=== PATIENT | female | born 1950 | race Caucasian/White ===

== ENCOUNTER 2017-02-19 01:33 | Emergency (ER) | payer MEDICARE ==
[2017-02-19] MEDS ORDERED: ACETAMINOPHEN 325 MG TABLET (FP) PO ONE (02:19)
--- NOTE | 2017-02-19 02:19 | PDOC ---
History of Present Illness - General Exam Limitations: No Limitations - History of Present Illness Initial Comments: 02/19/17 02:28 66 year old female with PMHx of arthritis, HLD, GERD, diverticulosis, liver disease, hypothyroidism, Sjogrens syndrome, and cholecystectomy who presents to the emergency department complaining of 2 days of generalized malaise, body aches, nonproductive cough, and posttussive emesis. She reports that she has a headache from the incessant coughing. The patient also states that she felt warm prior to arrival, but did not check her temperature. Denies abdominal pain , diarrhea, dysuria, hematuria, and any other urinary complaints. Denies sick contact. Denies recent travel. Denies chest pain, SOB. Allergies: Penicillin PCP: Dr. Ramos <Mariza Nickerson - Last Filed: 02/19/17 02:28> - General History Source: Patient <Og Cristina - Last Filed: 02/19/17 04:33> - General Stated Complaint: FEVER/VOMITING Time Seen by Provider: 02/19/17 02:09 Past History <Mariza Nickerson - Last Filed: 02/19/17 02:28> - Past Medical History Anemia: No Asthma: No Cancer: No Cardiac Disorders: No CVA: No COPD: No CHF: No Dementia: No Diabetes: No GI Disorders: Yes (GERD, CONSTIPATION, COLON POLYP; DIVERTICULOSIS) Disorders: No HTN: No Hypercholesterolemia: Yes Liver Disease: Yes (FATTY) Seizures: No Thyroid Disease: Yes (hypothyroid) - Surgical History Cholecystectomy: Yes (GALLSTONES) - Suicide/Smoking/Psychosocial Hx Smoking Status: No Smoking History: Never smoked Have you smoked in the past 12 months: No Number of Cigarettes Smoked Daily: 0 Hx Alcohol Use: No Drug/Substance Use Hx: No Substance Use Type: None <Og Cristina - Last Filed: 02/19/17 04:33> - Past Medical History Allergies/Adverse Reactions: Allergies Allergy/AdvReac Type Severity Reaction Status Date / Time Penicillins Allergy Verified 02/19/17 02:27 Home Medications: Ambulatory Orders Levothyroxine [Synthroid -] 50 mcg PO DAILY 12/16/13 Methotrexate [Mexate -] 2.5 mg PO Q7D 12/16/13 Ranitidine [Zantac -] 150 mg PO BID PRN 09/14/14 Calcium Carbonate/Vitamin D3 [Calcium + Vitamin D Tablet] 1 each PO BID Glucosamine HCl/Chondro Nicholson A [Glucosamine Chondroitin Cap] 1 each PO DAILY 10/27 Multivitamins [Tab-A-Vit -] 1 tab PO DAILY 10/27/14 Omeprazole [Prilosec (RX)] 40 mg PO DAILY 10/27/14 Vitamin E 400 unit PO DAILY 10/27/14 Ciprofloxacin HCl 500 mg PO BID #20 tablet 01/09/15 Metronidazole [Flagyl -] 500 mg PO TID #30 tablet 01/09/15 Oxycodone HCl/Acetaminophen [Percocet 5/325 -] 1 tab PO Q6H PRN #12 tablet 01/09 Azithromycin [Zithromax -] 250 mg PO UTDICT #6 tab 02/19/17 Review of Systems - Review of Systems Able to Perform ROS?: Yes Comments:: 02/19/17 02:28 CONSTITUTIONAL: Present: body aches, generalized malaise Absent: fever, no chills, no fatigue EYES: Absent: visual changes ENT: Absent: ear pain, no sore throat CARDIOVASCULAR: Absent: chest pain, no palpitations RESPIRATORY: +nonproductive cough, posttussive emesis Absent: no SOB GI: Absent: abdominal pain, no nausea, no constipation, no diarrhea GENITOURINARY: Absent: dysuria, no frequency, no hematuria MUSCULOSKELETAL: Absent: back pain, no arthralgia, no myalgia SKIN: Absent: rash <Mariza Nickerson - Last Filed: 02/19/17 02:28> *Physical Exam - Physical Exam Comments: 02/19/17 02:29 GENERAL: Well-appearing, well-nourished. In moderate distress HEENT: Normocephalic, atraumatic. PERRL, EOM intact.+dry mucous membranes CARDIOVASCULAR: Normal S1, S2. Regular rate and rhythm. PULMONARY: +coarse breath sounds bilaterally. ABDOMEN: Soft, non-distended, non-tender. EXTREMITIES: Normal ROM in all four extremities. No gross deformities. SKIN: Warm, dry. No rash NEUROLOGICAL: No focal neurological deficits. <Mraiza Nickerson - Last Filed: 02/19/17 02:28> ED Treatment Course - LABORATORY CBC & Chemistry Diagram: 02/19/17 03:15 02/19/17 03:15 <Og Cristina - Last Filed: 02/19/17 04:33> Medical Decision Making - Medical Decision Making 02/19/17 04:32 Dr. Cristina: The scribe's documentation has been prepared under my direction and personally reviewed by me in its entirery. I confirm that the note above accurately reflects all work, treatment, procedures, and medical decision making performed by me. Patient now feels better. Temp 99F. Pt to be discharged. Rx Zithromax, Ibuprofen. <Og Cristina - Last Filed: 02/19/17 04:33> *DC/Admit/Observation/Transfer - Attestations Scribe Attestion: 02/19/17 02:29 Documentation prepared by MEENA Garcia, acting as medical psychotherapist for Og Cristina MD. <Mariza Nickerson - Last Filed: 02/19/17 02:28> - Discharge Dispostion Admit: No <Og Cristina - Last Filed: 02/19/17 04:33> Diagnosis at time of Disposition: Bronchitis - Discharge Dispostion Disposition: HOME Condition at time of disposition: Stable - Prescriptions Prescriptions: Azithromycin [Zithromax -] 250 mg PO UTDICT #6 tab - Referrals Referrals: Xiomy Franklin MD [Primary Care Provider] - - Patient Instructions Printed Discharge Instructions: DI for Acute Bronchitis Print Language: TOGOLESE - Post Discharge Activity
[2017-02-19 02:31] VITALS: BP 161/80; BMI 30.2
[2017-02-19] MEDS ORDERED: ACETAMINOPHEN 325 MG TABLET (FP) ONE (02:32)
[2017-02-19] MEDS ORDERED: SODIUM CHLORIDE 1,000 ML IV STA (03:00)
[2017-02-19 03:29] LABS: BASOPHIL 0.5 % (0-2.0); EOSINOPHIL 0.6 % (0-4.5); MCH 30.8 pg (25.7-33.7); MCHC 34.9 g/dl (32.0-36.0); MEAN CELL VOLUME 88.4 fl (80-96); MEAN PLT VOLUME 7.9 fl (7.5-11.1); NEUTROPHILS 80.7 % (42.8-82.8); PLATELET COUNT 257 K/MM3 (134-434); RDW 14.4 % (11.6-15.6); WHITE BLOOD COUNT 9.9 K/mm3 (4.0-10.0)
[2017-02-19 03:55] LABS: ALBUMIN 3.9 g/dl (3.4-5.0); ANION GAP 10 (8-16); BILIRUBIN,TOTAL 0.6 mg/dL (0.2-1.0); CALCIUM 8.8 mg/dL (8.5-10.1); CO2 24 mmol/L (21-32); CREATININE 0.7 mg/dL (0.55-1.02); GLUCOSE,RANDOM 135 mg/dL (74-106); SGOT/AST 29 U/L (15-37); SGPT/ALT 49 U/L (12-78); TOT PROT 7.8 g/dl (6.4-8.2)
[2017-02-19 03:56] LABS: ALK PHOS 91 U/L (45-117)
[2017-02-19] MEDS ORDERED: AZITHROMYCIN 250 MG TABLET PO STA (04:04)
[2017-02-19] MEDS ORDERED: AZITHROMYCIN 250 MG TABLET ONE (04:29)
[2017-02-19 04:50] VITALS: PULSE 96
[2017-02-19 04:51] VITALS: TEMP 99.4
--- NOTE | 2017-02-21 17:16 | PDOC ---
Patient Follow-up (Call Back) - Post ED Follow - Up Condition at time of discharge: Stable Disposition at time of original discharge: HOME Reason for Call Back: Abnwl. Microbiology ((+) blood culture, 1 aerobic bottle grew gram positive cocci in clusters. Most likely a contaminant. Tried calling pt. on her land line and cell with no answer. Left message on cell. Waiting call back.)
--- NOTE | 2017-02-22 07:17 | PDOC ---
Patient Follow-up (Call Back) - Post ED Follow - Up Condition at time of discharge: Stable Disposition at time of original discharge: HOME Reason for Call Back: Abnwl. Microbiology (Patient on [facility] for bronchitis with positive blood culture on preliminary read, no sensitivities. Called patient and left message to call back)
== END 2017-02-19 04:45 | disposition home or self-care (01) ==
LOC: JER 01:33
PROC: 3E0337Z Introduction of Electrolytic and Water Balance Substance into Peripheral Vein, Percutaneous Approach (ICD-10-PCS; principal; 2017-02-19)
DX: J40 Bronchitis, not specified as acute or chronic (principal); E78.00 Pure hypercholesterolemia, unspecified; K21.9 Gastro-esophageal reflux disease without esophagitis; M12.9 Arthropathy, unspecified; E03.9 Hypothyroidism, unspecified; M35.00 Sjogren syndrome, unspecified; Z90.49 Acquired absence of other specified parts of digestive tract
CPT/HCPCS: 36415; 71020-TC; 80053; 85025; 87040; 99283-25

== ENCOUNTER 2018-11-28 | Emergency (ER) | payer OTHER | END 2018-11-28 05:33 | disposition home or self-care (01) | LOC: JER ==

== ENCOUNTER 2018-12-30 11:21 | Emergency (ER) | payer OTHER ==
[2018-12-30 11:28] VITALS: BP 152/75; PULSE 74; TEMP 98.4; BMI 26.1
--- NOTE | 2018-12-30 12:08 | PDOC ---
History of Present Illness - General Chief Complaint: Pain, Acute Stated Complaint: RT KNEE PAIN Time Seen by Provider: 12/30/18 11:32 History Source: Patient Exam Limitations: No Limitations - History of Present Illness Initial Comments: 12/30/18 12:34 Patient is here with complaints of right knee pain. States [address] Metz, gave her a steroid injection for pain management for chronic pain from rheumatoid arthritis. Patient is taking multiple NSAIDs, and methotrexate for her rheumatoid arthritis but states has progressive worsening. Dr. Metz is out of town and was instructed to come to emergency department for evaluation. Denies fever, denies any redness, no purulent drainage. But states pain has progressively worsened. Occurred: reports: just prior to arrival Associated Symptoms (Fall): denies symptoms Past History - Past Medical History Allergies/Adverse Reactions: Allergies Allergy/AdvReac Type Severity Reaction Status Date / Time Penicillins Allergy Verified 02/19/17 02:27 Home Medications: Ambulatory Orders Levothyroxine [Synthroid -] 50 mcg PO DAILY 12/16/13 Methotrexate [Mexate -] 2.5 mg PO Q7D 12/16/13 Ranitidine [Zantac -] 150 mg PO BID PRN 09/14/14 Calcium Carbonate/Vitamin D3 [Calcium + Vitamin D Tablet] 1 each PO BID Glucosamine HCl/Chondro Nicholson A [Glucosamine Chondroitin Cap] 1 each PO DAILY 10/27 Multivitamins [Tab-A-Vit -] 1 tab PO DAILY 10/27/14 Omeprazole [Prilosec (RX)] 40 mg PO DAILY 10/27/14 Vitamin E 400 unit PO DAILY 10/27/14 Oxycodone HCl/Acetaminophen [Percocet 5/325 -] 1 tab PO Q6H PRN #12 tablet 01/09 Azithromycin [Zithromax -] 250 mg PO UTDICT #6 tab 02/19/17 Levofloxacin [Levaquin] 750 mg PO DAILY #7 tablet 12/02/18 Clindamycin [Cleocin -] 150 mg PO Q8H #21 capsule 12/30/18 Oxycodone HCl/Acetaminophen [Percocet 5-325 mg Tablet -] 1 - 2 tab PO Q4H PRN # 7 tablet MDD 4 12/30/18 Anemia: No Asthma: No Cancer: No Cardiac Disorders: No CVA: No COPD: No CHF: No Dementia: No Diabetes: No GI Disorders: Yes (GERD, CONSTIPATION, COLON POLYP; DIVERTICULOSIS) Disorders: No HTN: No Hypercholesterolemia: Yes Liver Disease: Yes (FATTY) Seizures: No Thyroid Disease: Yes (hypothyroid) - Surgical History Cholecystectomy: Yes (G[facility]ONES) - Immunization History Immunization Up to Date: Yes - Psycho Social/Smoking Cessation Hx Smoking Status: No Smoking History: Never smoked Have you smoked in the past 12 months: No Number of Cigarettes Smoked Daily: 0 Information on smoking cessation initiated: No Hx Alcohol Use: No Drug/Substance Use Hx: No Substance Use Type: None Review of Systems - Review of Systems Able to Perform ROS?: Yes Is the patient limited Yoruba proficient: Yes Constitutional: Yes: See HPI. No: Symptoms Reported, Fever, Malaise HEENTM: No: Symptoms Reported Respiratory: No: Symptoms reported ABD/GI: No: Symptoms Reported Musculoskeletal: Yes: Symptoms Reported Integumentary: Yes: See HPI. No: Symptoms Reported, Bruising, Erythema *Physical Exam - Vital Signs Last Vital Signs Temp Pulse Resp BP Pulse Ox 98.4 F 74 16 152/75 99 12/30/18 11:26 12/30/18 11:26 12/30/18 11:26 12/30/18 11:26 12/30/18 11:26 - Physical Exam General Appearance: Yes: Nourished, Appropriately Dressed, Apparent Distress, Mild Distress HEENT: positive: ABELARDO, Normal ENT Inspection, Normal Voice, TMs Normal, Pharynx Normal Neck: positive: Supple. negative: Tender Respiratory/Chest: positive: Lungs Clear Musculoskeletal: positive: Decreased Range of Motion (Swollen, with ballottement to superior and inferior patella. Patella is mobile but is painful to move. Has no true ligamentous pain but mild tenderness to posterior fossa. Neurovascular intact distal to the knee) Extremity: positive: Normal Capillary Refill, Other (Limited range of motion secondary to tenderness and pain) Integumentary: positive: Normal Color. negative: Erythema Neurologic: positive: wheel grinder II-XII NML intact, Fully Oriented, Alert ED Treatment Course - RADIOLOGY Radiology Studies Ordered: Category Date Time Status KNEE 3 POS-RIGHT [RAD] Stat Radiology 12/30/18 11:59 Ordered ED Progress Note - Progress Note Progress Note: 12/30/18 15:52 X-ray negative for fractures or dislocations, no bone deformity or evidence of osteo-. No foreign bodies noted however noted DJD throughout joint. Will start on clindamycin to ensure no joint cellulitis and have follow-up on Thursday with Dr. Metz's office. Given number 7 tablets of Percocet 12/30/18 15:55 Discharge - Discharge Information Problems reviewed: Yes Clinical Impression/Diagnosis: Knee pain, right Qualifiers: Chronicity: chronic Qualified Code(s): M25.561 - Pain in right knee Condition: Stable Disposition: HOME - Admission No - Additional Discharge Information Prescriptions: Clindamycin [Cleocin -] 150 mg PO Q8H #21 capsule Oxycodone HCl/Acetaminophen [Percocet 5-325 mg Tablet -] 1 - 2 tab PO Q4H PRN # 7 tablet MDD 4 PRN Reason: Pain - Follow up/Referral Referrals: Aurora Pacheco MD [Primary Care Provider] - - Patient Discharge Instructions Patient Printed Discharge Instructions: DI for Knee Pain Additional Instructions: Rest, ice to area on and off for 15 minutes 4-6 times a day Avoid heavy lifting or exercise until pain and swelling is resolved or until further directed Keep area highly elevated to reduce swelling Use splints/Bryon wrap as directed Followup with orthopedist in one to 2 days if not improving, if significantly improved may wait one week for followup with orthopedist May use ibuprofen every 6 hours as needed for pain May use 1 tablet of Percocet as needed for severe pain, understanding will make dizzy and sleepy - Post Discharge Activity Work/Back to School Note: Back to Work
== END 2018-12-30 13:04 | disposition home or self-care (01) ==
LOC: JERFT 11:21
DX: M25.561 Pain in right knee (principal); G89.29 Other chronic pain; M06.9 Rheumatoid arthritis, unspecified; K21.9 Gastro-esophageal reflux disease without esophagitis; K59.00 Constipation, unspecified; K57.92 Diverticulitis of intestine, part unspecified, without perforation or abscess without bleeding; E78.00 Pure hypercholesterolemia, unspecified; E03.9 Hypothyroidism, unspecified; Z88.0 Allergy status to penicillin
CPT/HCPCS: 73562-TC-RT-FY; 99281-25

== ENCOUNTER 2019-10-08 10:40 | Emergency (ER) | payer OTHER ==
[2019-10-08 11:00] VITALS: TEMP 98.8; BMI 28.0
--- NOTE | 2019-10-08 11:37 | PDOC ---
History of Present Illness - General Chief Complaint: Abnormal Lab Results (Outside) Stated Complaint: LOW SODIUM Time Seen by Provider: 10/08/19 11:16 History Source: Patient Exam Limitations: No Limitations - History of Present Illness Initial Comments: 10/08/19 11:35 68-year-old female history of hypertension, arthritis, gastritis, hypothyroidism sent to ED by PMD for low sodium. Patient states she has been feeling tired x2 days with intermittent paresthesias. Denies fever, chills, cough, chest pain, shortness of breath, abdominal pain, nausea, vomiting, diarrhea or urinary symptoms. Denies sick contacts or recent travel. ROS: as above PE: GENERAL: well-appearing, NAD HEAD: NCAT EYES: Pupils equal, round and reactive to light, sclera anicteric, conjunctiva clear ENT: pharynx: no erythema, no exudate, uvula midline NECK: supple CHEST: nontender RESP: clear, no w/r/r CARDIO: rrr, no m/g/r ABD: +BS, soft, nontender, non distended BACK: no midline spinal ttp, no CVAT EXTREMITIES: Normal range of motion, no edema NEUROLOGICAL: Normal speech, normal gait SKIN: Warm, Dry Is this a multiple visit Asthma Patient?: No Past History - Medical History Allergies/Adverse Reactions: Allergies Allergy/AdvReac Type Severity Reaction Status Date / Time Penicillins Allergy Verified 10/08/19 12:26 Home Medications: Ambulatory Orders Levothyroxine [Synthroid -] 50 mcg PO DAILY 12/16/13 Multivitamins [Tab-A-Vit -] 1 tab PO DAILY 10/27/14 Omeprazole [Prilosec (RX)] 40 mg PO DAILY 10/27/14 Famotidine [Pepcid] 40 mg PO HS 10/08/19 Lisinopril/Hydrochlorothiazide [Lisinopril-Hctz 20-25 mg Tab] 1 each PO DAILY 10/08/19 Anemia: No Asthma: No Cancer: No Cardiac Disorders: No CVA: No COPD: No CHF: No Dementia: No Diabetes: No GI Disorders: Yes (GERD, CONSTIPATION, COLON POLYP; DIVERTICULOSIS) Disorders: No HTN: No Hypercholesterolemia: Yes Liver Disease: Yes (FATTY) Seizures: No Thyroid Disease: Yes (hypothyroid) - Surgical History Cholecystectomy: Yes (G[facility]ONES) - Immunization History Immunization Up to Date: Yes - Psycho-Social/Smoking History Smoking Status: No Smoking History: Never smoked Have you smoked in the past 12 months: No Number of Cigarettes Smoked Daily: 0 - Substance Abuse Hx (Audit-C & DAST Scrn) How often the patient has a drink containing alcohol: Never Score: In Men: 4 or > Positive; In Women: 3 or > Positive: 0 Screen Result (Pos requires Nsg. Audit-10AR): Negative *Physical Exam - Vital Signs Last Vital Signs Temp Pulse Resp BP Pulse Ox 98.8 F 84 16 147/82 100 10/08/19 10:48 10/08/19 10:48 10/08/19 10:48 10/08/19 10:48 10/08/19 10:48 ED Treatment Course - LABORATORY CBC & Chemistry Diagram: 10/08/19 11:30 10/08/19 14:09 Medical Decision Making - Medical Decision Making 10/08/19 11:36 68-year-old female history of hypertension, arthritis, gastritis, hypothyroidism sent to ED by PMD for low sodium. Patient states she has been feeling tired x2 days with intermittent paresthesias. Denies fever, chills, cough, chest pain, shortness of breath, abdominal pain, nausea, vomiting, diarrhea or urinary symptoms. Denies sick contacts or recent travel. Repeat lab Reassess 10/08/19 16:42 I spoke with [employer] Yocasta Inman who evaluated patient yesterday she confirmed Na 127 Na today 129, after 2L NS Na 134 Informed patient of these results she agrees with plan for discharge home She has scheduled follow-up appointment with PMD on Thursday, October 09 Understands return precautions Discharge - Discharge Information Problems reviewed: Yes Clinical Impression/Diagnosis: Hyponatremia Condition: Stable Disposition: HOME - Admission No - Follow up/Referral Referrals: Jose Alfredo Montoya II, DO [Primary Care Provider] - - Patient Discharge Instructions Additional Instructions: Keep your appointment scheduled with your doctor in 2 days Return to ED if you develop weakness, numbness, tingling, chest pain, shortness of breath, or any concerning symptoms - Post Discharge Activity
[2019-10-08 11:43] LABS: BASO % 0.4 % (0-2.0); EOS % 0.7 % (0-4.5); HEMATOCRIT 39.2 % (32.4-45.2); HEMOGLOBIN 13.4 GM/dL (10.7-15.3); LYMPH % 29.4 % (8-40); MCH 30.5 pg (25.7-33.7); MCHC 34.2 g/dl (32.0-36.0); MEAN CELL VOLUME 89.4 fl (80-96); MEAN PLT VOLUME 8.5 fl (7.5-11.1); MONO % 10.8 % (3.8-10.2); NEUT % 58.7 % (42.8-82.8); PLATELET COUNT 377 K/MM3 (134-434); RBC 4.39 M/mm3 (3.60-5.2); RDW 14.8 % (11.6-15.6); WHITE BLOOD COUNT 7.6 K/mm3 (4.0-10.0)
[2019-10-08 12:17] LABS: ALBUMIN 4.1 g/dl (3.4-5.0); BILIRUBIN,TOTAL 0.9 mg/dL (0.2-1); BLOOD UREA NITROGEN 10.6 mg/dL (7-18); CALCIUM 9.4 mg/dL (8.5-10.1); CREATININE 0.6 mg/dL (0.55-1.3); MAGNESIUM 2.3 mg/dL (1.8-2.4); TOT PROT 8.3 g/dl (6.4-8.2)
[2019-10-08 12:37] LABS: EPI CELLS >36 /uL (0-25.1); HYALINE CASTS 3 /uL (0-3.1); URINE APPEARANCE CLOUDY; URINE BACTERIA 25 /uL (0-1359); URINE BILIRUBIN NEGATIVE (NEGATIVE); URINE COLOR YELLOW; URINE GLUCOSE (UA) NEGATIVE (NEGATIVE); URINE KETONE NEGATIVE (NEGATIVE); URINE LEUK ESTERASE 1+ (NEGATIVE); URINE NITRITE NEGATIVE (NEGATIVE); URINE PROTEIN NEGATIVE (NEGATIVE); URINE RBC 55 /uL (0-23.9); URINE UROBILINOGEN 0.2 mg/dL (0.2-1.0); URINE WBC 18 /uL (0-25.8)
[2019-10-08] MEDS ORDERED: SODIUM CHLORIDE 0.9% 500 ML INFUS.BAG IV ONE ×2 (12:52→12:53)
[2019-10-08 15:02] VITALS: BP 135/80; PULSE 81
[2019-10-08 15:46] LABS: BLOOD UREA NITROGEN 8.9 mg/dL (7-18); CALCIUM 8.8 mg/dL (8.5-10.1); CREATININE 0.5 mg/dL (0.55-1.3); POTASSIUM 4.5 mmol/L (3.5-5.1)
--- NOTE | 2019-10-09 17:28 | EKG ---
Test Reason : Blood Pressure : / mmHG Vent. Rate : 071 BPM Atrial Rate : 071 BPM P-R Int : 144 ms QRS Dur : 086 ms QT Int : 408 ms P-R-T Axes : 063 056 020 degrees QTc Int : 443 ms NORMAL SINUS RHYTHM NORMAL ECG WHEN COMPARED WITH ECG OF 10-AUG-2008 07:53, NO SIGNIFICANT CHANGE WAS FOUND Confirmed by MD Womack Edward ([id number]) on 10/09/2019 5:27:47 PM Referred By: Confirmed By:Alberto Womack MD
== END 2019-10-08 16:55 | disposition home or self-care (01) ==
LOC: JER 10:40
DX: E87.1 Hypo-osmolality and hyponatremia (principal)
CPT/HCPCS: 36415; 80048; 80053; 81003; 83735; 85025; 93005; 93010; 99284-25

== ENCOUNTER 2020-10-19 13:19 | Inpatient (IN) | payer OTHER ==
[2020-10-19 16:14] LABS: BASO % 0.7 % (0-2.0); EOS % 0.6 % (0-4.5); HEMATOCRIT 37.8 % (32.4-45.2); HEMOGLOBIN 13.2 GM/dL (10.7-15.3); LYMPH % 27.8 % (8-40); MCH 30.1 pg (25.7-33.7); MEAN CELL VOLUME 85.9 fl (80-96); MEAN PLT VOLUME 7.8 fl (7.5-11.1); MONO % 9.9 % (3.8-10.2); PLATELET COUNT 398 10^3/uL (134-434); RDW 13.5 % (11.6-15.6); WHITE BLOOD COUNT 7.8 K/mm3 (4.0-10.0)
[2020-10-19 16:37] LABS: BLOOD UREA NITROGEN 16.2 mg/dL (7-18); CALCIUM 8.8 mg/dL (8.5-10.1)
[2020-10-19 16:38] LABS: ALBUMIN 4.1 g/dl (3.4-5.0)
[2020-10-19 16:41] LABS: CREATININE 0.7 mg/dL (0.55-1.3)
[2020-10-19 16:42] LABS: BILIRUBIN,TOTAL 0.4 mg/dL (0.2-1); PH,URINE 6.5 (5.0-8.0); TOT PROT 8.4 g/dl (6.4-8.2); URINE APPEARANCE CLEAR; URINE BILIRUBIN NEGATIVE (NEGATIVE); URINE COLOR YELLOW; URINE GLUCOSE (UA) NEGATIVE (NEGATIVE); URINE KETONE NEGATIVE (NEGATIVE); URINE LEUK ESTERASE NEGATIVE (NEGATIVE); URINE NITRITE NEGATIVE (NEGATIVE); URINE PROTEIN NEGATIVE (NEGATIVE); URINE UROBILINOGEN 0.2 mg/dL (0.2-1.0)
[2020-10-19] MEDS ORDERED: SODIUM CHLORIDE 1,000 ML IV SCH ×2 (17:30→22:10)
[2020-10-19 21:01] LABS: BLOOD UREA NITROGEN 13.2 mg/dL (7-18); CALCIUM 8.6 mg/dL (8.5-10.1)
[2020-10-19 21:04] LABS: CREATININE 0.6 mg/dL (0.55-1.3)
[2020-10-20 05:13] VITALS: BMI 27.0
[2020-10-20] MEDS ORDERED: LEVOTHYROXINE NA 50 MCG TABLET (FP) PO SCH ×2 (07:00→10:00)
[2020-10-20 10:00] LABS: HEMATOCRIT 34.7 % (32.4-45.2); HEMOGLOBIN 12.1 GM/dL (10.7-15.3); MCH 30.2 pg (25.7-33.7); MCHC 34.8 g/dl (32.0-36.0); MEAN PLT VOLUME 7.4 fl (7.5-11.1); PLATELET COUNT 377 10^3/uL (134-434); RBC 3.99 M/mm3 (3.60-5.2); RDW 13.6 % (11.6-15.6)
[2020-10-20] MEDS ORDERED: PATIENT'S OWN MEDICATION (NON-FORMULARY) (Meloxicam [Mobic] 15 MG Tablet) PO SCH (10:00)
[2020-10-20] MEDS ORDERED: LISINOPRIL 20 MG TABLET PO SCH (10:00)
[2020-10-20] MEDS ORDERED: FOLIC ACID 1 MG TABLET (FP) PO SCH (10:00)
[2020-10-20 10:27] LABS: BLOOD UREA NITROGEN 12.1 mg/dL (7-18); CALCIUM 8.5 mg/dL (8.5-10.1); MAGNESIUM 2.2 mg/dL (1.8-2.4)
[2020-10-20 10:31] LABS: CREATININE 0.6 mg/dL (0.55-1.3); PHOSPHOROUS 3.3 mg/dL (2.5-4.9)
[2020-10-20 17:32] VITALS: BP 130/70; PULSE 74; TEMP 98.2
== END 2020-10-20 18:55 | disposition home or self-care (01) | DRG 641 ==
LOC: JER 13:19 → JERBED 19:58 → OBSVTOIN 21:51 → J6S 10-20 04:17
PROVIDERS: ADMIT Internal Medicine; ATTEND Internal Medicine
DX: E87.1 Hypo-osmolality and hyponatremia (principal); I10 Essential (primary) hypertension; M32.9 Systemic lupus erythematosus, unspecified; E03.9 Hypothyroidism, unspecified; K21.9 Gastro-esophageal reflux disease without esophagitis; M06.9 Rheumatoid arthritis, unspecified; T50.2X5A Adverse effect of carbonic-anhydrase inhibitors, benzothiadiazides and other diuretics, initial encounter
CPT/HCPCS: 36415; 80048; 80053; 81003; 83735; 83930; 84100; 84443; 85025; 85027; 93005; 93010; 99285-25; C9803; G0378; U0003; U0005

== ENCOUNTER 2022-09-03 04:42 | Day surgery (SDC) | payer OTHER ==
[2022-09-02 14:14] VITALS: BMI 29.4
[~2022-09-03 04:42] MED LIST: ACETAMINOPHEN 325 MG TABLET (FP) PO PRN
[2022-09-03] MEDS ORDERED: POVIDONE-IODINE 5% OPHTHALMIC PREP 30 ML SOLUTION ONE (07:27)
[2022-09-03] MEDS ORDERED: LIDOCAINE HCL/PF 1% SDV 5ML VIAL ONE (07:27)
[2022-09-03] MEDS ORDERED: TETRACAINE 0.5% OPHTH SOLN 2 ML BOTTLE ONE (07:27)
[2022-09-03] MEDS ORDERED: PHENYLEPHRINE 2.5% OPTHALMIC DROP 2ML BOTTLE ONE (07:52)
[2022-09-03] MEDS ORDERED: KETOROLAC TROMETHAMINE 0.5% EYE DROP 1 DROP DROPS ONE (07:53)
[2022-09-03] MEDS ORDERED: CYCLOPENTOLATE HCL 1% OPHTH SOLN 2 ML BOTTLE ONE (07:53)
[2022-09-03] MEDS ORDERED: TROPICAMIDE 1% OPHTH SOLN 15 ML BOTTLE ONE (07:53)
[2022-09-03] MEDS ORDERED: OFLOXACIN 0.3% OPHTHALMIC SOLUTION 5 ML BOTTLE ONE (07:53)
[2022-09-03 08:10] VITALS: RESP 20
[2022-09-03] MEDS: TROPICAMIDE 1% OPHTH SOLN 15 ML BOTTLE OP SCH ×3 (08:10→08:24)
[2022-09-03] MEDS: PHENYLEPHRINE 2.5% OPHTH SOLN 15 ML BOTTLE OP SCH ×3 (08:10→08:24)
[2022-09-03] MEDS: KETOROLAC TROMETHAMINE 0.5% EYE DROP 1 DROP DROPS OP SCH ×3 (08:10→08:24)
[2022-09-03] MEDS: OFLOXACIN 0.3% OPHTHALMIC SOLUTION 5 ML BOTTLE OP SCH ×3 (08:10→08:24)
[2022-09-03] MEDS: CYCLOPENTOLATE HCL 1% OPHTH SOLN 2 ML BOTTLE OP SCH ×3 (08:10→08:25)
[2022-09-03] MEDS ORDERED: MIDAZOLAM HCL 2 MG/2 ML SINGLE DOSE VIAL ONE (10:22)
[2022-09-03] MEDS ORDERED: TETRACAINE 0.5% OPHTH SOLN 2 ML BOTTLE TP ONE (10:32)
[2022-09-03] MEDS ORDERED: POVIDONE-IODINE 5% OPHTHALMIC PREP 30 ML SOLUTION OS ONE (10:33)
[2022-09-03] MEDS ORDERED: BSS (NA/CA/MG/K) BALANCED SALT SOLUTION OPHTH SOLN 15 ML BOTTLE OS ONE (10:40)
[2022-09-03] MEDS ORDERED: LIDOCAINE HCL 1% PRESERVATIVE FREE - 30ML VIAL IO ONE (10:41)
[2022-09-03] MEDS ORDERED: CHONDROITIN SU A/HYALUR SOD 1 KIT IO ONE (10:41)
[2022-09-03] MEDS ORDERED: EPINEPHrine/PF 1 MG/1 ML (1:1,000) AMPULE SQ ONE (10:46)
[2022-09-03] MEDS ORDERED: ACETAMINOPHEN 325 MG TABLET (FP) ONE (11:21)
[2022-09-03] MEDS ORDERED: ACETAMINOPHEN 325 MG TABLET (FP) PO ONE (11:25)
[2022-09-03 12:32] VITALS: BP 129/70; PULSE 63; TEMP 97.8
== END 2022-09-03 12:33 | disposition home or self-care (01) ==
LOC: JASU-SURG 04:42
PROVIDERS: ATTEND Ophthalmology
PROC: 08RK3JZ Replacement of Left Lens with Synthetic Substitute, Percutaneous Approach (ICD-10-PCS; principal; 2022-09-03 10:00)
DX: H26.9 Unspecified cataract (principal)
CPT/HCPCS: V2632